=== PATIENT | male | born 1995 | race Caucasian/White ===

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

== ENCOUNTER 2018-04-01 14:46 | Emergency (ER) | payer OTHER ==
[~2018-04-01] VITALS: Ht 175.3 cm; Wt 65.9 kg
[2018-04-01 14:46] VITALS: BP 130/71
[~2018-04-01 14:46] MED LIST: PARO12.5 PO; TRAZO50TA PO
--- NOTE | 2018-04-01 15:43 | REP ---
Right clavicle series: Two views. History: Injury in a fall. Findings: AP and tube angled views of the right clavicle demonstrate a mid shaft right clavicular fracture with a 2-3 mm of inferior displacement of the distal fragment. Otherwise alignment is good. Impression: Right clavicular mid shaft fracture with 2-3 mm of inferior displacement. Electronically Signed by Remington Junior MD 04/01/2018 03:35 P
[2018-04-01] MEDS ORDERED: ACETAMINOPHEN 325 MG TAB PO ONE (15:45)
--- NOTE | 2018-04-05 07:26 | REP ---
Right shoulder series: Three views. History: Injury in a fall. Findings: Three views right shoulder demonstrate a midshaft fracture of the right clavicle with three mm of inferior displacement of the distal fragment. Glenohumeral and acromioclavicular joints are normally aligned. No other fracture is seen. Impression: Right clavicular mid shaft fracture with 3 mm of inferior displacement. Electronically Signed by Remington Junior MD 04/01/2018 03:34 P
== END 2018-04-01 15:52 | disposition home or self-care (01) ==
LOC: M ED 14:46
DX: S42.001A Fracture of unspecified part of right clavicle, initial encounter for closed fracture (principal); V00.311A Fall from snowboard, initial encounter; Y92.838 Other recreation area as the place of occurrence of the external cause; Y93.23 Activity, snow (alpine) (downhill) skiing, snowboarding, sledding, tobogganing and snow tubing